=== PATIENT | male | born 1965 | race Caucasian/White ===

== ENCOUNTER 2020-08-10 15:43 | Emergency (ER) | payer OTHER ==
[2020-08-10] MEDS ORDERED: Sodium Chloride 0.9% 2.5 ML Syringe FLUSH PRN (15:55)
[2020-08-10] MEDS ORDERED: Sodium Chloride 0.9% 10 ML Syringe FLUSH PRN (15:55)
[2020-08-10] MEDS ORDERED: Iopamidol 755 MG/ML 500 ML Multipack Bottle IVPUSH ONE (16:20)
[2020-08-10] MEDS ORDERED: Iopamidol 755 Mg/ML 100 ML Bottle IVPUSH ONE (16:21)
[2020-08-10 16:22] LABS: CARBON DIOXIDE,CO2 27.6 mmol/L (21.0-32.0); POTASSIUM,K 3.4 mmol/L (3.5-5.1)
[2020-08-10] MEDS ORDERED: Diphtheria,Pertussis(Acell),Tetanus Vaccine 0.5 ML Syringe IM ONE (16:24)
[2020-08-10] MEDS ORDERED: Clindamycin Phosphate in D5W 900 MG in Premix Bag 1 BAG IV ONE ×2 (16:27)
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
[2020-08-10 17:39] VITALS: BP 149/98; PULSE 92
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
== END 2020-08-10 18:38 | disposition home or self-care (01) ==
LOC: MW.ED 15:43
DX: S01.84XA Puncture wound with foreign body of other part of head, initial encounter (principal); S11.94XA Puncture wound with foreign body of unspecified part of neck, initial encounter; S21.142A Puncture wound with foreign body of left front wall of thorax without penetration into thoracic cavity, initial encounter; S01.432A Puncture wound without foreign body of left cheek and temporomandibular area, initial encounter; I10 Essential (primary) hypertension; E66.9 Obesity, unspecified; Z23 Encounter for immunization; Z88.0 Allergy status to penicillin; Z68.32 Body mass index [BMI] 32.0-32.9, adult; W33.01XA Accidental discharge of shotgun, initial encounter
CPT/HCPCS: 36415; 70496; 70498; 71045; 73552; 80053; 85025; 85610; 90471; 90715; 96365; 99285; J3490; Q9967; 99283